=== PATIENT | female | born 1985 | race Caucasian/White ===

== ENCOUNTER 2017-08-12 19:26 | Outpatient (CLI) | payer OTHER ==
[2017-08-12 21:18] LABS: ADD UMIC YES; UR ASCORBIC ACID NEGATIVE (NEGATIVE); UR BACTERIA FEW /HPF (NONE SEEN); UR BILIRUBIN (Dip) NEGATIVE (NEGATIVE); UR BLOOD (Dip) NEGATIVE (NEGATIVE); UR CLARITY SLIGHTLY CLOUDY (CLEAR); UR COLOR YELLOW (YELLOW); UR GLUCOSE (Dip) 3+ mg/dL (NEGATIVE); UR KETONES (Dip) TRACE mg/dL (NEGATIVE); UR LEUKOCYTE ESTERASE (Dip) TRACE Leu/ul (NEGATIVE); UR MUCUS FEW /HPF (NONE SEEN); UR NITRITE (Dip) NEGATIVE (NEGATIVE); UR RBC 1 /HPF (0-5); UR SPECIFIC GRAVITY (Dip) 1.024 (1.003-1.030); UR SQUAMOUS EPITHELIAL CELL FEW /HPF (FEW); UR TOTAL PROTEIN (Dip) NEGATIVE (NEGATIVE); UR UROBILINOGEN (Dip) NEGATIVE (NEGATIVE); UR WBC 25 /HPF (0-5)
[2017-08-12] MEDS: glyBURIDE 5 MG TAB PO (21:30)
== END 2017-08-13 00:48 | disposition home or self-care (01) ==
LOC: OBT 19:26 → L-D 19:27
DX: O24.419 Gestational diabetes mellitus in pregnancy, unspecified control (principal); O32.1XX0 Maternal care for breech presentation, not applicable or unspecified; Z3A.31 31 weeks gestation of pregnancy
CPT/HCPCS: 76817; 76818; 81001; 82962

== ENCOUNTER 2017-09-12 10:16 | Outpatient (CLI) | payer OTHER ==
[2017-09-12] MEDS ORDERED: LACTATED RINGER'S 1,000 ML IV (12:00)
== END 2017-09-12 12:40 | disposition home or self-care (01) ==
LOC: OBT 10:16 → L-D 10:16 → OBT 12:40
DX: O62.9 Abnormality of forces of labor, unspecified (principal); Z3A.35 35 weeks gestation of pregnancy
CPT/HCPCS: 76815; 76818; 96360

== ENCOUNTER 2017-09-27 02:20 | Inpatient (IN) | payer OTHER ==
[2017-09-27] MEDS: LACTATED RINGER'S 1,000 ML IV ×4 (03:08→21:05)
[2017-09-27 04:10] LABS: ADD UMIC YES; UR ASCORBIC ACID NEGATIVE (NEGATIVE); UR BACTERIA FEW /HPF (NONE SEEN); UR BILIRUBIN (Dip) NEGATIVE (NEGATIVE); UR BLOOD (Dip) 1+ mg/dL (NEGATIVE); UR CLARITY SLIGHTLY CLOUDY (CLEAR); UR COLOR YELLOW (YELLOW); UR GLUCOSE (Dip) 3+ mg/dL (NEGATIVE); UR KETONES (Dip) TRACE mg/dL (NEGATIVE); UR LEUKOCYTE ESTERASE (Dip) 1+ Leu/ul (NEGATIVE); UR NITRITE (Dip) NEGATIVE (NEGATIVE); UR RBC 1 /HPF (0-5); UR SPECIFIC GRAVITY (Dip) 1.022 (1.003-1.030); UR SQUAMOUS EPITHELIAL CELL FEW /HPF (FEW); UR TOTAL PROTEIN (Dip) 1+ mg/dl (NEGATIVE); UR UROBILINOGEN (Dip) NEGATIVE (NEGATIVE); UR WBC 5 /HPF (0-5)
[2017-09-27] MEDS ORDERED: CEFTRIAXONE 1 GM INJ IM ×2 (05:00)
[2017-09-27] MEDS: CEFTRIAXONE 1 GM/50 ML (PMX) 50 ML IVPB (05:36)
[2017-09-27 07:44] LABS: ADD MAN DIFF? NO
[2017-09-27 07:47] LABS: ABNORMAL IP MESSAGE 1; BASOPHILS % 0.4 % (0.0-2.0); EOSINOPHILS # 0.1 10^3/ul (0.0-0.5); EOSINOPHILS % 1.2 % (0.0-7.0); HEMATOCRIT 30.7 % (37.0-47.0); HEMOGLOBIN 9.4 g/dl (12.0-16.0); LYMPHOCYTES # 2.6 10^3/ul (0.8-2.9); LYMPHOCYTES % 22.9 % (15.0-51.0); MEAN CORPUSCULAR HEMOGLOBIN 21.1 pg (29.0-33.0); MEAN CORPUSCULAR HGB CONC 30.6 g/dl (32.0-37.0); MEAN PLATELET VOLUME 11.5 fl (7.4-10.4); MONOCYTE # 0.8 10^3/ul (0.3-0.9); NEUTROPHIL # 7.6 10^3/ul (1.6-7.5); NEUTROPHILS % 67.2 % (39.0-77.0); NUCLEATED RED BLOOD CELLS% 0.4 /100WBC (0.0-0.0); PLATELET COUNT 261 10^3/UL (140-415); RED BLOOD COUNT 4.45 10^6/ul (4.20-5.40); RED CELL DISTRIBUTION WIDTH 16.7 % (11.5-14.5)
[2017-09-27 07:47] LABS: WHITE BLOOD COUNT 11.2 10^3/ul (4.8-10.8)
[2017-09-27 07:53] LABS: ALANINE AMINOTRANSFERASE 29 IU/L (13-69); ALBUMIN 3.1 g/dl (3.3-4.9); ALBUMIN/GLOBULIN RATIO 0.88; ALKALINE PHOSPHATASE 232 IU/L (42-121); ANION GAP 15 (8-16); ASPARTATE AMINO TRANSFERASE 26 IU/L (15-46); BILIRUBIN,INDIRECT 0.1 mg/dl (0-1.1); BILIRUBIN,TOTAL 0.1 mg/dl (0.2-1.3); BLOOD UREA NITROGEN 6 mg/dl (7-20); CALCIUM 9.5 mg/dl (8.4-10.2); CARBON DIOXIDE 19 mmol/L (21-31); CHLORIDE 110 mmol/L (97-110); CREATININE 0.51 mg/dl (0.44-1.00); GLUCOSE 170 mg/dl (70-220); SODIUM 140 mmol/L (135-144); TOTAL PROTEIN 6.6 g/dl (6.1-8.1)
[2017-09-27 08:08] LABS: POSITIVE DIFF @See below
[2017-09-27] MEDS: PRENATAL VITAMIN PO (08:30)
[2017-09-27] MEDS: glyBURIDE 5 MG TAB PO (08:30)
[2017-09-27] MEDS: DOCUSATE SODIUM 100 MG CAP PO (08:30)
[2017-09-27] MEDS ORDERED: OXYTOCIN 30 UNITS/LR 500 ML IV ×3 (10:00)
[2017-09-27] MEDS ORDERED: METHYLERGONOVINE 0.2 MG INJ IM (10:00)
[2017-09-27] MEDS ORDERED: LIDOCAINE 1% (MPF) 30 ML INJ INJ (10:00)
[2017-09-27] MEDS ORDERED: CARBOPROST 250 MCG INJ IM (10:00)
[2017-09-27] MEDS ORDERED: MISOPROSTOL 200 MCG TAB PR (10:00)
[2017-09-27 11:38] LABS: INR 0.95; PROTIME 12.8 Sec (11.9-14.9)
[2017-09-27 13:35] LABS: PARTIAL THROMBOPLASTIN TIME 30.1 Sec (25.0-35.0)
[2017-09-27] MEDS ORDERED: GLUCAGON 1 MG INJ IM (14:00)
[2017-09-27] MEDS ORDERED: DEXTROSE 50% 50 ML SYRINGE IV ×2 (14:00)
[2017-09-27] MEDS ORDERED: GLUCOSE GEL 15 GRAM TUBE PO ×2 (14:00)
[2017-09-27] MEDS ORDERED: GLUCOSE GEL 15 GRAM TUBE BUCCAL (14:00)
[2017-09-27 14:14] LABS: HEPATITIS B SURFACE ANTIGEN NEGATIVE (NEGATIVE)
[2017-09-27] MEDS: ACCU-CHEK XX ×4 (14:42→22:00)
[2017-09-27 16:54] LABS: HEMOGLOBIN A1C 7.7 % (0-5.9)
[2017-09-27] MEDS: INSULIN ASPART [NOVOLOG] 3 ML PEN SC ×3 (17:05→18:12)
[2017-09-27] MEDS: DEXTROSE 5%-LR 1,000 ML IV (20:20)
[2017-09-27 21:17] LABS: RAPID PLASMA REAGIN NONREACTIVE (NR)
[2017-09-27] MEDS: INSULIN ISOPHANE (NPH) 10 ML INJ SC (22:07)
[2017-09-27] MEDS: ACETAMINOPHEN 325 MG TAB PO (22:16)
[2017-09-28] MEDS: LACTATED RINGER'S 1,000 ML IV ×4 (05:05→21:05)
[2017-09-28] MEDS: DEXTROSE 5%-LR 1,000 ML IV (06:32)
[2017-09-28] MEDS: ACCU-CHEK XX ×4 (06:35→20:27)
[2017-09-28] MEDS ORDERED: INSULIN ISOPHANE (NPH) 10 ML INJ SC (07:05)
[2017-09-28] MEDS ORDERED: INSULIN ASPART [NOVOLOG] 3 ML PEN SC (07:35)
[2017-09-28] MEDS ORDERED: CITRIC ACID/SODIUM CITRATE 15 ML CUP (10:23)
[2017-09-28] MEDS ORDERED: CEFAZOLIN 2 GM/50 ML (PMX) 50 ML IVPB (10:23)
[2017-09-28] MEDS ORDERED: FAMOTIDINE 20 MG INJ (10:23)
[2017-09-28] MEDS ORDERED: METOCLOPRAMIDE 10 MG INJ (10:24)
[2017-09-28] MEDS: FAMOTIDINE 20 MG INJ IV (10:26)
[2017-09-28] MEDS: METOCLOPRAMIDE 10 MG INJ IV (10:26)
[2017-09-28] MEDS: CITRIC ACID/SODIUM CITRATE 15 ML CUP PO (10:27)
[2017-09-28] MEDS ORDERED: OXYTOCIN 30 UNITS/LR 500 ML IV ×3 (10:30→18:30)
[2017-09-28] MEDS ORDERED: CEFAZOLIN 2 GM/50 ML (PMX) 50 ML IV (10:30)
[2017-09-28] MEDS ORDERED: FENTAnyl 50 MCG/ML VIAL (11:00)
[2017-09-28] MEDS ORDERED: morphine SULFATE/PF (10 MG/10 ML) INJ (11:00)
[2017-09-28] MEDS ORDERED: PHENYLephrine (100 MCG/ML) 5ML SYG ×2 (11:18→11:58)
[2017-09-28] MEDS ORDERED: ONDANSETRON 4 MG INJ (11:32)
[2017-09-28] MEDS ORDERED: EPHEDrine SULFATE 50 MG/5 ML SYG (11:53)
[2017-09-28] MEDS ORDERED: PROCHLORPERAZINE 10 MG INJ IV (12:00)
[2017-09-28] MEDS ORDERED: ONDANSETRON 4 MG INJ IV ×2 (12:00→13:00)
[2017-09-28] MEDS ORDERED: MEPERIDINE 25 MG INJ IV (12:00)
[2017-09-28] MEDS ORDERED: DIPHENHYDRAMINE 50 MG INJ IV ×2 (12:00→13:00)
[2017-09-28] MEDS ORDERED: HYDROmorphONE (0.2 MG/ML) 10ML SYG IV (12:00)
[2017-09-28] MEDS ORDERED: HYDROmorphONE 0.5 MG/0.5 ML SYG IV ×2 (13:00)
[2017-09-28] MEDS ORDERED: NALOXONE (0.4 MG/ML) INJ IV (13:00)
[2017-09-28] MEDS ORDERED: ZOLPIDEM 5 MG TAB PO (13:00)
[2017-09-28] MEDS: KETOROLAC 30 MG INJ IV (13:42)
[2017-09-28] MEDS: FENTAnyl 50 MCG/ML VIAL IV (15:18)
[2017-09-28] MEDS: DOCUSATE SODIUM 100 MG CAP PO (15:52)
[2017-09-28] MEDS: PRENATAL VITAMIN PO (15:53)
[2017-09-28] MEDS: INSULIN ASPART [NOVOLOG] 3 ML PEN SC ×3 (18:05→20:58)
[2017-09-28] MEDS ORDERED: METHYLERGONOVINE 0.2 MG INJ IM (18:30)
[2017-09-28] MEDS ORDERED: LANOLIN 7 GM TUBE TOP (18:30)
[2017-09-28] MEDS ORDERED: CARBOPROST 250 MCG INJ IM (18:30)
[2017-09-28] MEDS ORDERED: MISOPROSTOL 200 MCG TAB PR (18:30)
[2017-09-28] MEDS ORDERED: OXYCODONE/ACETAMINOPHEN (5/325) TAB PO ×2 (18:30)
[2017-09-28] MEDS: OXYTOCIN 30 UNITS/LR 500 ML IV ×2 (19:00→22:40)
[2017-09-28] MEDS ORDERED: INSULIN GLARGINE [LANtus] 3 ML PEN SC (20:00)
[2017-09-28] MEDS: CEFAZOLIN 1 GM/50 ML (PMX) 50 ML IVPB (20:26)
[2017-09-28] MEDS: SENNA/DOCUSATE NA (8.6MG/50MG) TAB PO (21:25)
[2017-09-29] MEDS: OXYTOCIN 30 UNITS/LR 500 ML IV (00:37)
[2017-09-29] MEDS: ACCU-CHEK XX ×4 (03:00→20:34)
[2017-09-29] MEDS: LACTATED RINGER'S 1,000 ML IV (05:21)
[2017-09-29] MEDS: INSULIN ASPART [NOVOLOG] 3 ML PEN SC ×5 (08:05→21:00)
[2017-09-29 09:27] LABS: ADD MAN DIFF? NO
[2017-09-29 09:33] LABS: WHITE BLOOD COUNT 9.6 10^3/ul (4.8-10.8)
[2017-09-29 09:33] LABS: BASOPHIL # 0.1 10^3/ul (0.0-0.1); BASOPHILS % 0.5 % (0.0-2.0); EOSINOPHILS % 0.4 % (0.0-7.0); HEMATOCRIT 27.9 % (37.0-47.0); HEMOGLOBIN 8.6 g/dl (12.0-16.0); LYMPHOCYTES # 1.3 10^3/ul (0.8-2.9); LYMPHOCYTES % 13.5 % (15.0-51.0); MEAN CORPUSCULAR HEMOGLOBIN 21.4 pg (29.0-33.0); MEAN CORPUSCULAR HGB CONC 30.8 g/dl (32.0-37.0); MEAN CORPUSCULAR VOLUME 69.6 fl (82.0-101.0); MEAN PLATELET VOLUME 11.6 fl (7.4-10.4); MONOCYTE # 0.7 10^3/ul (0.3-0.9); MONOCYTES % 7.1 % (0.0-11.0); NEUTROPHIL # 7.3 10^3/ul (1.6-7.5); NEUTROPHILS % 76.5 % (39.0-77.0); PLATELET COUNT 233 10^3/UL (140-415); RED BLOOD COUNT 4.01 10^6/ul (4.20-5.40); RED CELL DISTRIBUTION WIDTH 17.7 % (11.5-14.5)
[2017-09-29] MEDS: DOCUSATE SODIUM 100 MG CAP PO (09:34)
[2017-09-29] MEDS: SENNA/DOCUSATE NA (8.6MG/50MG) TAB PO ×2 (09:34→20:50)
[2017-09-29] MEDS: KETOROLAC 30 MG INJ IV (11:23)
[2017-09-29] MEDS: GUAIFENESIN/DM 5ML CUP PO ×2 (12:29→18:55)
[2017-09-29] MEDS: IBUPROFEN 600 MG TAB PO (18:07)
[2017-09-30] MEDS: IBUPROFEN 600 MG TAB PO ×5 (00:19→23:42)
[2017-09-30] MEDS: GUAIFENESIN/DM 5ML CUP PO ×4 (01:06→21:16)
[2017-09-30] MEDS: INSULIN ASPART [NOVOLOG] 3 ML PEN SC ×4 (08:05→21:00)
[2017-09-30] MEDS: DOCUSATE SODIUM 100 MG CAP PO (08:51)
[2017-09-30] MEDS: SENNA/DOCUSATE NA (8.6MG/50MG) TAB PO ×2 (08:51→21:00)
[2017-09-30] MEDS: ACCU-CHEK XX ×3 (10:05→20:05)
[2017-09-30] MEDS: HYDROCODONE/APAP (5/325) TAB PO (12:03)
[2017-09-30] MEDS: metFORMIN 500 MG TAB PO ×2 (18:05→18:27)
[2017-10-01] MEDS: HYDROCODONE/APAP (5/325) TAB PO (00:32)
[2017-10-01] MEDS: IBUPROFEN 600 MG TAB PO ×2 (06:10→12:01)
[2017-10-01] MEDS: SENNA/DOCUSATE NA (8.6MG/50MG) TAB PO (08:46)
[2017-10-01] MEDS: metFORMIN 500 MG TAB PO (08:47)
[2017-10-01] MEDS: DIPHTH/TET/ACEL PERTUSS (ADULT) 0.5 ML VIAL IM* (09:00)
[2017-10-01] MEDS: DOCUSATE SODIUM 100 MG CAP PO (09:52)
[2017-10-01] MEDS: GUAIFENESIN/DM 5ML CUP PO (09:53)
== END 2017-10-01 14:26 | disposition home or self-care (01) | DRG 766 ==
LOC: OBT 02:20 → L-D 09-28 10:51 → OBT 03:10 → L-D 03:10 → PP1 09-28 16:50
PROVIDERS: Obstetrics & Gynecology
PROC: 10D00Z1 Extraction of Products of Conception, Low, Open Approach (ICD-10-PCS; principal; 2017-09-28 11:45)
PROC: 0UB70ZZ Excision of Bilateral Fallopian Tubes, Open Approach (ICD-10-PCS; 2017-09-28 11:45)
DX: O24.425 Gestational diabetes mellitus in childbirth, controlled by oral hypoglycemic drugs (principal); O34.211 Maternal care for low transverse scar from previous cesarean delivery; O99.284 Endocrine, nutritional and metabolic diseases complicating childbirth; E88.81 Metabolic syndrome and other insulin resistance; Z37.0 Single live birth; Z3A.38 38 weeks gestation of pregnancy; Z30.2 Encounter for sterilization
CPT/HCPCS: 36415; 76818; 80053; 81001; 82962; 83036; 85025; 85610; 85730; 86592; 86900; 86901; 87340; 88302; 94760; 96360; 96361; 99464